=== PATIENT | female | born 1970 | race African-American/Black ===

== ENCOUNTER 2021-11-26 09:44 | Emergency (ER) | payer OTHER ==
[2021-11-26 09:56] VITALS: BP 140/81; PULSE 92; TEMP 98.8; BMI 32.9
== END 2021-11-26 11:44 | disposition home or self-care (01) ==
LOC: FER 09:44
DX: N64.52 Nipple discharge (principal)
CPT/HCPCS: 87070; 87205; 99281-25

== ENCOUNTER 2023-10-11 12:58 | Emergency (ER) | payer OTHER ==
[2023-10-11 13:04] VITALS: BP 123/84; PULSE 82; RESP 16; TEMP 98.1; BMI 34.0
[2023-10-11 13:26] LABS: EPITHELIAL CELLS 21-50 /hpf
[2023-10-11] MEDS: ONDANSETRON *ODT* 4 MG TABLET SL ONE (13:40)
[2023-10-11] MEDS ORDERED: ONDANSETRON *ODT* 4 MG TABLET ONE (13:41)
[2023-10-11] MEDS ORDERED: SULFAMETHOXAZOLE/TRIMETHOPRIM 800MG/160MG D.S. TABLET ONE (13:44)
[2023-10-11] MEDS ORDERED: PHENAZOPYRIDINE HCL 100 MG TABLET (FP) ONE (13:44)
[2023-10-11] MEDS: PHENAZOPYRIDINE HCL 100 MG TABLET (FP) PO ONE (13:48)
[2023-10-11] MEDS: SULFAMETHOXAZOLE/TRIMETHOPRIM 800MG/160MG D.S. TABLET PO ONE (13:48)
== END 2023-10-11 13:52 | disposition home or self-care (01) ==
LOC: FER 12:58
DX: R35.0 Frequency of micturition (principal); R30.0 Dysuria; N30.00 Acute cystitis without hematuria
CPT/HCPCS: 81003; 81015; 87086; 87186; 99283-25; Q0162

== ENCOUNTER 2024-07-29 11:16 | Emergency (ER) | payer OTHER ==
[2024-07-29 11:41] VITALS: BP 122/86; PULSE 95; RESP 18; TEMP 97.7; BMI 34.5
[2024-07-29] MEDS ORDERED: CEPHALEXIN MONOHYDRATE 500 MG CAPSULE (UD) ONE (12:09)
[2024-07-29] MEDS: CEPHALEXIN MONOHYDRATE 500 MG CAPSULE (UD) PO ONE (12:13)
== END 2024-07-29 12:16 | disposition home or self-care (01) ==
LOC: FER 11:16
DX: N39.0 Urinary tract infection, site not specified (principal); R30.0 Dysuria; R35.0 Frequency of micturition
CPT/HCPCS: 81003; 81015; 87086; 87186; 99283-25